=== PATIENT | female | born 1985 | race Caucasian/White ===

== ENCOUNTER 2016-11-29 16:18 | Emergency (ER) | payer BC ==
--- NOTE | 2016-11-29 16:40 | ER Document Report ---
ED Medical Screen (RME) - General Chief Complaint: General Weakness Stated Complaint: WEAKNESS/NAUSEA Mode of Arrival: Medic Information source: Patient, Emergency Med Personnel Notes: 31 y/o F presents to ED via EMS from dental clinic where she states had episode of dizziness and n/v after she was given dose of clindamycin and norco. Denies chest or head pain. I have greeted and performed a rapid initial assessment of this patient. A comprehensive ED assessment and evaluation of the patient, analysis of test results and completion of the medical decision making process will be conducted by additional ED providers. TRAVEL OUTSIDE OF THE [place] IN LAST 30 DAYS: No - Related Data Allergies/Adverse Reactions: No Known Allergies Allergy (Verified 11/29/16 16:29) Past Medical History - Social History Chew tobacco use (# tins/day): No Frequency of alcohol use: None Drug Abuse: None Renal/ Medical History: Denies: Hx Peritoneal Dialysis Physical Exam - Vital signs Vitals: Temp Pulse Resp BP Pulse Ox 97.2 F 96 16 132/86 H 100 11/29/16 16:37 11/29/16 16:37 11/29/16 16:37 11/29/16 16:37 11/29/16 16:37 Course - Vital Signs Vital signs: Temp Pulse Resp BP Pulse Ox 97.2 F 96 16 132/86 H 100 11/29/16 16:37 11/29/16 16:37 11/29/16 16:37 11/29/16 16:37 11/29/16 16:37
[2016-11-29] MEDS ORDERED: ONDANSETRON 4 MG TAB.RAPDIS PO ONE (17:14)
--- NOTE | 2016-11-29 17:14 | ER Document Report ---
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 She had an appointment at 2: 00 for referral for 3 dental abscesses. She has not eaten much today and she took clindamycin and [place] at 10:00 this morning. She did not have anyone to drive her home from the oral surgeon office so they called EMS. She denies because she takes control pills. She continues to be nauseated that extends up into her esophagus. sHe states clindamycin always makes her feel this way. TRAVEL OUTSIDE OF THE [place] IN LAST 30 DAYS: No - Related Data Allergies/Adverse Reactions: No Known Allergies Allergy (Verified 11/29/16 16:29) Past Medical History - General Information source: Patient, Emergency Med Personnel - Social History Smoking Status: Never Smoker Chew tobacco use (# tins/day): No Frequency of alcohol use: None Drug Abuse: None Lives with: Family Family History: Reviewed & Not Pertinent Patient has suicidal ideation: No Patient has homicidal ideation: No - Medical History Medical History: Negative Surgical Hx: Negative Review of Systems - Review of Systems Constitutional: See HPI EENT: See HPI Cardiovascular: No symptoms reported Respiratory: No symptoms reported Gastrointestinal: See HPI Genitourinary: No symptoms reported Female Genitourinary: No symptoms reported Musculoskeletal: No symptoms reported Skin: No symptoms reported Hematologic/Lymphatic: No symptoms reported Neurological/Psychological: No symptoms reported, See HPI Physical Exam - Vital signs Vitals: Temp Pulse Resp BP Pulse Ox 97.2 F 96 16 132/86 H 100 11/29/16 16:37 11/29/16 16:37 11/29/16 16:37 11/29/16 16:37 11/29/16 16:37 Interpretation: Normal - General General appearance: Appears well, Alert In distress: None - HEENT Head: Normocephalic, Atraumatic Eyes: Normal Conjunctiva: Normal Pupils: PERRL Neck: Supple. No: Lymphadenopathy - Respiratory Respiratory status: No respiratory distress Chest status: Nontender Breath sounds: Normal Chest palpation: Normal - Cardiovascular Rhythm: Regular Heart sounds: Normal auscultation Murmur: No - Abdominal Inspection: Normal Distension: No distension Bowel sounds: Normal Tenderness: Nontender. No: Tender Organomegaly: No organomegaly - Back Back: Normal, Nontender. No: CVA tenderness - Extremities General upper extremity: Normal inspection, Nontender, Normal color, Normal ROM , Normal temperature General lower extremity: Normal inspection, Nontender, Normal color, Normal ROM , Normal temperature, Normal weight bearing. No: Nic's sign - Neurological Neuro grossly intact: Yes Cognition: Normal Orientation: AAOx4 Dickens Coma Scale Eye Opening: Spontaneous Dickens Coma Scale Verbal: Oriented Dickens Coma Scale Motor: Obeys Commands Dickens Coma Scale Total: 15 Speech: Normal Motor strength normal: LUE, RUE, LLE, RLE Sensory: Normal Notes: not dizzy when stands, stable gait - Psychological Associated symptoms: Normal affect, Normal mood - Skin Skin Temperature: Warm Skin Moisture: Dry Skin Color: Normal Skin irregularity: negative: Rash Course - Re-evaluation Re-evalutation: 11/29/16 17:[address] Doherty per [facility] guidelines who agrees that we need to add a EKG to the workup that has alreadybeen ordered. 11/29/16 18:36 pt feels better, labs normal so far. EKG read by dr doherty, NSR> u/a and toxicology pending 11/29/16 18:43 urine postitive for benzo and opiates, she states she took a nerve pill 1 week ago, stands without dizziness. urine 1.029, drinking fluids without nausea or vomiting. - Vital Signs Vital signs: Temp Pulse Resp BP Pulse Ox 97.5 F 104 H 16 119/79 100 11/29/16 18:47 11/29/16 18:47 11/29/16 16:37 11/29/16 18:47 11/29/16 18:47 - Laboratory Result Diagrams: 11/29/16 17:10 11/29/16 17:10 Laboratory results interpreted by me: 11/29/16 11/29/16 17:10 17:48 BUN 24 H Urine Ketones TRACE H Discharge - Discharge Clinical Impression: Episode of dizziness, Nausea, esophogitis from clindamycin Condition: Good Disposition: HOME, SELF-CARE Instructions: Dizziness ([facility]), Nausea or Vomiting, Nonspecific ([facility]) Additional Instructions: continue to drink fluids until your urine is light colored tonight for full hydration to er if worse copy of labs given to you do not take clindamycin or hydrocodone on an empty stomach maalox or tums for the burning sensation with the clindamycin Prescriptions: Ondansetron HCl [Zofran 4 mg Tablet] 1 - 2 tab PO Q4H PRN #20 tablet PRN Reason: Forms: Return to Work
[2016-11-29 17:39] LABS: ABSOLUTE BASOPHILS # (AUTO) 0.1 10^3/uL (0.0-0.2); ABSOLUTE EOSINOPHILS # (AUTO) 0.4 10^3/uL (0.0-0.6); ABSOLUTE LYMPHOCYTES (AUTO) 2.4 10^3/uL (0.5-4.7); ABSOLUTE NEUT (AUTO) 5.3 10^3/uL (1.7-8.2); BASOPHILS % (AUTO) 0.8 % (0-2); EOSINOPHILS % (AUTO) 4.4 % (0-6); HEMATOCRIT 41.8 % (36.0-47.0); HEMOGLOBIN 13.9 g/dL (12.0-15.5); HGB HCT DIFFERENCE -0.1; LYMPHOCYTES % (AUTO) 25.8 % (13-45); MEAN CORPUSCULAR HEMOGLOBIN 30.4 pg (27.0-33.4); MEAN CORPUSCULAR HGB CONC 33.2 g/dL (32.0-36.0); MEAN CORPUSCULAR VOLUME 92 fl (80-97); MONOCYTES % (AUTO) 11.3 % (3-13); RED BLOOD COUNT 4.57 10^6/uL (3.72-5.28); RED CELL DISTRIBUTION WIDTH 13.9 % (11.5-14.0); SEGMENTED NEUTROPHILS % (AUTO) 57.7 % (42-78); WHITE BLOOD COUNT 9.3 10^3/uL (4.0-10.5)
[2016-11-29 17:52] LABS: ALANINE AMINOTRANSFERASE 39 U/L (9-52); ALBUMIN 4.6 g/dL (3.5-5.0); ALKALINE PHOSPHATASE 71 U/L (38-126); ANION GAP 14 (5-19); ASPARTATE AMINO TRANSFERASE 27 U/L (14-36); BILIRUBIN,TOTAL 0.5 mg/dL (0.2-1.3); BLOOD UREA NITROGEN 24 mg/dL (7-20); CARBON DIOXIDE 26 mmol/L (22-30); CHLORIDE 101 mmol/L (98-107); CREATININE RESULT 0.99 mg/dL (0.52-1.25); GLUCOSE 85 mg/dL (75-110); SODIUM 140.9 mmol/L (137-145); TOTAL PROTEIN 7.7 g/dL (6.3-8.2)
--- NOTE | 2016-11-29 18:29 | EKG REPORT ---
SEVERITY:- NORMAL ECG - SINUS RHYTHM : Confirmed by: Tyree Leija MD 29-Nov-2016 18:29:18
[2016-11-29 18:30] LABS: APPEARANCE,URINE SLIGHTLY-CLOUDY; BILIRUBIN,URINE NEGATIVE (NEGATIVE); GLUCOSE, URINE NEGATIVE (NEGATIVE); KETONES,URINE TRACE mg/dL (NEGATIVE); LEUKOCYTE ESTERASE,URINE NEGATIVE (NEGATIVE); NITRITE,URINE NEGATIVE (NEGATIVE); PROTEIN,URINE NEGATIVE (NEGATIVE); URINE SPECIFIC GRAVITY 1.029; UROBILINOGEN,URINE NEGATIVE mg/dL (<2.0)
[2016-11-29 18:34] LABS: URINE BARBITURATES SCREEN NEGATIVE; URINE METHADONE SCREEN NEGATIVE; URINE PHENCYCLIDINE SCREEN NEGATIVE
[2016-11-29 18:48] VITALS: BP 119/79
[2016-11-29] MEDS ORDERED: MAG HYDROX/AL HYDROX/SIMETH SUSP 30 ML UDCUP PO ONE (18:51)
== END 2016-11-29 19:01 | disposition home or self-care (01) ==
LOC: EDBD → ER 16:18
DX: K20.9 Esophagitis, unspecified (principal); T36.8X5A Adverse effect of other systemic antibiotics, initial encounter; R42 Dizziness and giddiness; R11.0 Nausea; K04.7 Periapical abscess without sinus; Z79.3 Long term (current) use of hormonal contraceptives
CPT/HCPCS: 93005; 99284; 36415; 87086; 84703; 85025; 80053; 81001; 80307; 93010; S0119